=== PATIENT | male | born 1980 | race Caucasian/White ===

== ENCOUNTER → 2021-01-24 17:01 | Outpatient (BNVA) | payer BC, SELFPAY | PROVIDERS: Visit Provider Family Medicine | DX: M54.9 Dorsalgia, unspecified (principal); F41.9 Anxiety disorder, unspecified; M25.512 Pain in left shoulder | CPT/HCPCS: 81000 ==

== ENCOUNTER 2022-07-07 11:38 | Emergency (ER) | payer BC, SELFPAY ==
[2022-07-07 11:41] VITALS: BP 159/104; PULSE 75; RESP 20; TEMP 36.4; O2SAT 97; BMI 24.3
--- NOTE | 2022-07-07 11:44 | W.ED.FALL ---
HPI - Fall General: Chief Complaint: Back Pain/Injury Stated Complaint: fall low back pain Time Seen by Provider: 07/07/22 11:44 History of Present Illness: Mr. Leigh is a 41-year-old gentleman with history of back injury presented to the emergency department for back pain and hematuria. He reports 2 days ago while at work falling through a bench and landing on his back. He denies head strike or loss of consciousness associated with this. He did not immediately had pain. Subsequently, especially starting last night he has had right lower back pain without significant radiation. He notes associated hematuria and blood with ejaculation. No testicular pain or penile pain. Symptoms are moderate to severe in intensity. Course has persisted. He has not tried home medications. He does endorse alcohol use. No other specific changes in health, exacerbating, or alleviating factors identified. Onset (ago): day(s) Fall from: from height (distance) (3 ft) Place fall occurred: work Loss of consciousness: None Prolonged down time: no Symptoms prior to fall: none Context: tripped/slipped Location of injury: back Associated symptoms-after fall: Reports other Review of Systems General: Reports: 10 or more systems reviewed and unremarkable except in HPI and below PFSH ED PFSH: Medical History Psychiatric care Social History Smoking and tobacco status: current every day smoker cigarettes Packs smoked per day: 1 Years cigarettes smoked: 27 Alcohol intake: former Desire information about alcohol rehabilitation?: No Last substance use date: 01/23/21 Other details last substance use: smokes helena Marital status: Single Physical Exam Const: COMMON NORMALS: alert GENERAL APPEARANCE: cooperative and well developed HENMT: COMMON NORMALS: normocephalic and atraumatic HEAD & SCALP: normocephalic and atraumatic Eye: COMMON NORMALS: conjunctivae normal CONJUNCTIVA: Yes conjunctivae normal SCLERA: sclerae normal Neck/C-Spine: COMMON NORMALS: supple GENERAL: Yes trachea midline Resp: COMMON NORMALS: normal respiratory effort EFFORT & INSPECTION: Yes able to speak in complete sentences Cardio: COMMON NORMALS: regular rate and regular rhythm RATE: regular rate RHYTHM: regular rhythm GI: COMMON NORMALS: Soft to palpation PALPATION: Yes Soft to palpation and No Tenderness to palpation present (GI) Back/Pelvis: OTHER: Right mid to lower thoracic back tenderness palpation. Extremity: GENERAL: Yes normal exam except as noted and No edema Neuro: COMMON NORMALS: moves all extremities SENSORIUM/ORIENTATION: Yes alert and No Orientation impaired Psych: COMMON NORMALS: mental status grossly normal and Normal thought process present THOUGHT PROCESS: Normal thought process present Course Vital Signs: Vital signs: Vital Signs Temperature 97.6 F 07/07/22 11:41 Pulse Rate 80 07/07/22 14:56 Respiratory Rate 3 L 07/07/22 14:56 Blood Pressure 148/104 07/07/22 14:56 Pulse Oximetry 97 07/07/22 14:56 Oxygen Delivery Me thod 07/07/22 11:41 MDM - Fall Medical Decision Making 41-year-old gentleman presenting due to flank pain and concern over blood in urine. He does have mild evidence of clinical intoxication consistent with reported alcohol use today. Labs notable for hemoconcentration with no leukocytosis. No significant metabolic abnormality. Transaminitis likely secondary to alcohol use, no specific right upper quadrant tenderness. Positive UTI present. CT with hepatic steatosis with no other acute pathology or urinary tract pathology to explain symptoms. Patient treated with antibiotic, fluid, analgesia with improvement in symptoms During ED course. Most likely etiology of patient's symptoms is UTI. Patient denies new sexual partners or concern over sexually transmitted infection. The results of ED evaluation were discussed with the patient including prescriptions and/or symptomatic cares (if applicable) including appropriate and responsible use, followup plan, and return precautions. The patient verbalized understanding and felt safe for discharge. Medical Records I reviewed the patient's medical records. Lab Data I reviewed the patient's lab results. 07/07/22 12:33 07/07/22 12:33 Radiology Impressions Abdomen/Pelvis CT 07/07/22 13:09 IMPRESSION: 1. No sign of significant traumatic injury in the abdomen or pelvis. 2. No obstructive uropathy. No stones. 3. Hepatic steatosis. Laboratory Results WBC 6.7 10^3/uL (4.0-10.0) 07/07/22 12:33 Corrected WBC Cancelled 07/07/22 12:05 RBC 5.51 10^6/uL (4.1-5.3) H 07/07/22 12:33 Hgb 18.7 g/dL (11.7-16.6) H 07/07/22 12:33 Hct 55.0 % (42.0-52.0) H 07/07/22 12:33 MCV 99.8 fl (80-94) H 07/07/22 12:33 MCH 33.9 pg (28.0-34.0) 07/07/22 12:33 MCHC 34.0 g/dL (30.0-36.0) 07/07/22 12:33 RDW 13.1 % (12.1-15.1) 07/07/22 12:33 Plt Count 190 10^3/cmm (130-400) 07/07/22 12:33 MPV 9.2 fL (7.4-10.4) 07/07/22 12:33 Gran % Cancelled 07/07/22 12:05 Neut % (Auto) 57.1 % 07/07/22 12:33 Lymph % (Auto) 30.7 % 07/07/22 12:33 [place] % (Auto) 10.1 % 07/07/22 12:33 Eos % (Auto) 1.5 % 07/07/22 12:33 Baso % (Auto) 0.3 % 07/07/22 12:33 Neut # (Auto) 3.83 10^3/uL (1.8-7.7) 07/07/22 12:33 Lymph # (Auto) 2.1 10^3/uL (0.8-4.8) 07/07/22 12:33 [place] # (Auto) 0.7 10^3/uL (0.2-0.9) 07/07/22 12:33 Eos # (Auto) 0.1 10^3/uL (0.0-0.8) 07/07/22 12:33 Baso # (Auto) 0.0 10^3/uL (0.0-0.1) 07/07/22 12:33 Absolute Gran (auto) Cancelled 07/07/22 12:05 Nucleated RBC % (auto) 0 % 07/07/22 12:33 Nucleated RBCs # 0.0 /100WBC 07/07/22 12:33 Sodium 142 mmol/L (136-145) 07/07/22 12:33 Potassium 4.4 mmol/L (3.5-5.1) 07/07/22 12:33 Chloride 104 mmol/L (98-107) 07/07/22 12:33 Carbon Dioxide 28 mmol/L (22-29) 07/07/22 12:33 Anion Gap 14.4 (5-19) 07/07/22 12:33 BUN 8 mg/dL (6-20) 07/07/22 12:33 Creatinine 0.8 mg/dL (0.7-1.2) 07/07/22 12:33 GFR Calculation 106.5 mL/min (90-130) 07/07/22 12:33 Glucose 79 mg/dL (65-115) 07/07/22 12:33 Calculated Osmolality 291 mOsm/kg (285-295) 07/07/22 12: Calcium 9.0 mg/dL (8.5-10.5) 07/07/22 12:33 Total Bilirubin 0.2 mg/dL (0.15-1.2) 07/07/22 12:33 AST 140 U/L (0-40) H 07/07/22 12:33 ALT 131 U/L (0-41) H 07/07/22 12:33 Alkaline Phosphatase 77 U/L (40-130) 07/07/22 12:33 Total Protein 8.3 g/dL (6.6-8.7) 07/07/22 12: Albumin 4.4 g/dL (3.5-5.2) 07/07/22 12:33 Globulin 3.9 g/dL (1.3-4.6) 07/07/22 12: Lipase 39 U/L (13-60) 07/07/22 12:33 Urine Color Yellow (Yellow) 07/07/22 12:33 Urine Appearance Sl hazy (CLEAR) A 07/07/22 12:33 Urine pH 5 (5-7) 07/07/22 12:33 Ur Specific [place] 1.010 (1.005-1.030) 07/07/22 12:33 Urine Protein Neg (Negative) 07/07/22 12:33 Urine Glucose (UA) Norm (Normal) 07/07/22 12:33 Urine Ketones Negative (Negative) 07/07/22 12:33 Urine Blood Neg (Negative) 07/07/22 12:33 Urine Nitrate Positive (Negative) H 07/07/22 12:33 Urine Bilirubin Neg (Negative) 07/07/22 12:33 Urine Urobilinogen Norm mg/dL (Negative) 07/07/22 12:33 Ur Leukocyte Esterase Negative (Negative) 07/07/22 12:33 Urine RBC None /hpf (0-2) 07/07/22 12:33 Urine WBC Rare /hpf (0-5) 07/07/22 12:33 Ur Squamous Epith Cells None /hpf (0-5) 07/07/22 12:33 Amorphous Sediment Not Reportable 07/07/22 12:33 Urine Bacteria 4+ /hpf (NONE) H 07/07/22 12:33 Urine Mucus Trace /hpf 07/07/22 12:33 Discharge Plan Discharge Patient Disposition: Home Clinical Impression: Acute UTI, Back pain, Acute dehydration, Transaminitis, Enlarged liver Condition: Stable Prescriptions: New ondansetron 4 mg tablet,disintegrating 4 mg PO Q8H PRN (Reason: nausea and vomiting) Qty: 15 0RF oxycodone 5 mg tablet 5 mg PO Q4H PRN (Reason: pain) Qty: 10 0RF ciprofloxacin HCl 500 mg tablet 500 mg PO Q12H Qty: 20 0RF No Action acetaminophen-codeine 300-60 mg tablet 1 tab PO Q8H PRN (Reason: pain) Qty: 60 0RF celecoxib [Celebrex] 200 mg capsule 200 mg PO BID Qty: 60 2RF tizanidine 4 mg tablet 4 mg PO TID PRN (Reason: muscle spasticity) Qty: 60 1RF albuterol sulfate 90 mcg/actuation HFA aerosol inhaler 2 puff inhalation Q6H PRN (Reason: shortness of breath or wheezing) Qty: 8.5 0RF clonazepam 1 mg tablet 1 mg PO BID Qty: 60 2RF Discharge Orders: Discharge ED (Routine); Ordered 07/07/22 Ordered By: Camron Martínez Referrals: Chantal Slaughter MD [Primary Care Provider] - Discharge Diet: Usual diet Discharge Activity: Increase activity as tolerated Patient Instructions: Dehydration (ED), Urinary Tract Infection in Men (ED), Back Pain (ED), Opioid Safety Activity Restrictions/Additional Instructions: Thank you for visiting the emergency department. You were seen and evaluated for back pain and concern over blood in urine. The exact cause of your symptoms is unclear though likely related to urinary tract infection. You also have mild irritation of your liver and an enlarged liver which can contribute to pain. I recommend avoiding alcohol and acetaminophen. Please follow-up with a primary care provider for laboratory studies recheck. I will prescribe antibiotics, antinausea medication, and pain medication. I would expect improvement in the next few days. Return to the emergency department for worsening symptoms or anything else that you are concerned about and feel needs emergency department evaluation. Coding Level of Care Code ED C[employer] Assembler for Moise Linton
[2022-07-07 12:22] VITALS: RESP 16
[2022-07-07] MEDS: fentaNYL 50 mcg/mL INJ 2mL 25 MCG IVP (12:22)
[2022-07-07] MEDS: ketorolac 30 mg/mL INJ 15 MG IVP (12:22)
[2022-07-07] MEDS: sodium chloride 0.9% 1,000 ML 999 ML IV (12:23)
[2022-07-07 12:40] LABS: Basophils % 0.3 %; Eosinophils # 0.1 10^3/uL (0.0-0.8); Eosinophils % 1.5 %; Hemoglobin 18.7 g/dL (11.7-16.6); Lymphocytes # 2.1 10^3/uL (0.8-4.8); Lymphocytes % 30.7 %; Mean Corpuscular Hemoglobin 33.9 pg (28.0-34.0); Mean Corpuscular Volume 99.8 fl (80-94); Mean Platelet Volume 9.2 fL (7.4-10.4); Monocytes # 0.7 10^3/uL (0.2-0.9); Monocytes % 10.1 %; Neutrophils # 3.83 10^3/uL (1.8-7.7); Neutrophils % 57.1 %; Nucleated Red Blood Cells % 0 %; Platelet Count 190 10^3/cmm (130-400); Red Blood Count 5.51 10^6/uL (4.1-5.3); Red Cell Distribution Width 13.1 % (12.1-15.1); White Blood Count 6.7 10^3/uL (4.0-10.0)
[2022-07-07 13:00] LABS: Urine Appearance SL Hazy (CLEAR); Urine Color Yellow (Yellow)
[2022-07-07 13:01] LABS: Add Urine Microscopic? YES; Bilirubin Urine Neg (Negative); Blood Urine Neg (Negative); Glucose Urine UA Norm (Normal); Ketones Urine Negative (Negative); Leukocyte Esterase Urine Negative (Negative); Nitrate Urine Positive (Negative); Protein Urine Neg (Negative); Urobilinogen Urine Norm (Negative); pH Urine 5 (5-7)
[2022-07-07 13:04] LABS: Bacteria Urine 4+ /hpf; Mucus Urine TRACE /hpf; WBC Urine RARE /hpf (0-5)
[2022-07-07 13:05] LABS: Add Urine Culture? Yes
[2022-07-07 13:06] LABS: Alanine Aminotransferase 131 U/L (0-41); Albumin Level 4.4 g/dL (3.5-5.2); Alkaline Phosphatase 77 U/L (40-130); Anion Gap 14.4 (5-19); Aspartate Amino Transferase 140 U/L (0-40); Blood Urea Nitrogen 8 mg/dL (6-20); Carbon Dioxide 28 mmol/L (22-29); Chloride 104 mmol/L (98-107); Globulin 3.9 g/dL (1.3-4.6); Glomerular Filtration Rate 106.5 mL/min (90-130); Glucose 79 mg/dL (65-115); Lipase 39 U/L (13-60); Osmolality Calculated 291 mOsm/kg (285-295); Potassium 4.4 mmol/L (3.5-5.1); Sodium 142 mmol/L (136-145); Total Bilirubin 0.2 mg/dL (0.15-1.2); Total Protein 8.3 g/dL (6.6-8.7)
--- NOTE | 2022-07-07 13:09 | CTR_ITS ---
PROCEDURE INFORMATION: Exam: CT Abdomen And Pelvis Without Contrast Exam date and time: 07/07/2022 1:16 PM Age: 41 years old Clinical indication: Abdominal pain; Flank; Right; Additional info: Low back/ right flank pain TECHNIQUE: Imaging protocol: Computed tomography of the abdomen and pelvis without contrast. Radiation optimization: All CT scans at this facility use at least one of these dose optimization techniques: automated exposure control; mA and/or kV adjustment per patient size (includes targeted exams where dose is matched to clinical indication); or iterative reconstruction. REPORTING DATA: Count of CT and Cardiac NM exams in prior 12 months: This patient has received 0 known CTs and 0 known cardiac nuclear medicine studies in the 12 months prior to the current study. COMPARISON: No relevant prior studies available. RADIATION DOSE METRICS: Total DLP (mGy-cm): 413.38 FINDINGS: Lungs: Lung bases are clear. Liver: There is no focal liver abnormality. There is diffuse low-attenuation of the liver relative to the spleen consistent with fatty infiltration. Gallbladder and bile ducts: The gallbladder is normal. There is no biliary dilation. Pancreas: The pancreas is unremarkable. Spleen: The spleen is unremarkable. Adrenal glands: The adrenal glands are unremarkable. Kidneys and ureters: The kidneys are unremarkable. No hydronephrosis or stones. No ureteral dilation. Stomach and bowel: The stomach is unremarkable. The small bowel is nondilated. The colon is unremarkable. Appendix: The appendix is normal. Intraperitoneal space: There is no free air or significant intraperitoneal free fluid. Vasculature: The aorta is unremarkable. There is no aneurysm. Lymph nodes: There is no lymphadenopathy in the retroperitoneum, mesentery, pelvis or inguinal regions. Urinary bladder: The urinary bladder is unremarkable. Reproductive: The prostate and seminal vesicles are unremarkable. Bones/joints: There is mild degenerative disease in the lower lumbar spine. The pelvis and hips are unremarkable. Soft tissues: The abdominal wall is intact. CT/CT kidney stone [id number] IMPRESSION: 1. No sign of significant traumatic injury in the abdomen or pelvis. 2. No obstructive uropathy. No stones. 3. Hepatic steatosis.
[2022-07-07] MEDS: ciprofloxacin 500 mg Tablet PO (14:33)
[2022-07-07 14:56] VITALS: BP 148/104; PULSE 80; RESP 3; O2SAT 97
== END 2022-07-07 14:58 | disposition home or self-care (01) ==
PROVIDERS: Emergency Provider Emergency Medicine; PCP Family Medicine
DX: N39.0 Urinary tract infection, site not specified (principal); M54.50 Low back pain, unspecified; E86.0 Dehydration; R74.01 Elevation of levels of liver transaminase levels; R16.0 Hepatomegaly, not elsewhere classified; F17.210 Nicotine dependence, cigarettes, uncomplicated
CPT/HCPCS: 74176; 80053; 81001; 83690; 85025; 87077; 87086; 87186; 87491; 96374; 96375; 99285; J1885; J3010; J7030

== ENCOUNTER 2022-10-12 04:17 | Emergency (ER) | payer BC, SELFPAY ==
[2022-10-12 04:25] VITALS: BP 141/111; PULSE 91; RESP 18; TEMP 36.6; O2SAT 96; BMI 20.3
--- NOTE | 2022-10-12 04:28 | XRR_ITS ---
PROCEDURE INFORMATION: Exam: XR Left Hand Exam date and time: 10/12/2022 4:32 AM Age: 42 years old Clinical indication: Injury or trauma; Fall; Work related; Blunt trauma (contusions or hematomas); Hand; Left TECHNIQUE: Imaging protocol: Radiologic exam of the left hand. Views: 3 or more views. COMPARISON: No relevant prior studies available. FINDINGS: Bones/joints: There is complete dislocation involving the left 1st metacarpal phalangeal joint. The middle phalanx of the thumb is dislocated laterally relative to the 1st metacarpal. There is no definite acute fracture. If symptoms of fracture persist, follow-up imaging in several days may be useful to exclude an occult or subtle fracture. No other significant acute bone or joint abnormality. Soft tissues: No significant acute finding. XR/XR hand LT min 3V* [id number] IMPRESSION: 1. Dislocation of the left 1st metacarpophalangeal joint, details above. 2. No definite acute fracture. 3. Other details discussed above.
--- NOTE | 2022-10-12 04:29 | ED_ITS ---
Documented by User: Mazin Hoyos MD 10/12/22 04:48 HPI - Fall General: Chief Complaint: Fall Stated Complaint: Fall/Left and injury Time Seen by Provider: 10/12/22 04:26 Source: patient Mode of arrival: ambulatory Limitations: no limitations History of Present Illness: 42-year-old male states that he fell off a 6 foot ladder 2 hours ago he landed on his left hand is obvious deformity to his left thumb. States he did hit his head but denies any loss conscious he denies any headache currently he is not on any blood thinners. He denies any neck pain or pain elsewhere. Associated symptoms-after fall: Denies abdominal pain, chest pain, headache(s) or neck pain Review of Systems Const: Denies: fever(s) or chills Eyes: Denies: eye discomfort ENMT: Denies: throat pain or dental pain Card: Denies: chest pain Resp: Denies: dyspnea GI: Denies: abdominal pain, nausea, vomiting or diarrhea Musc: Reports: extremity pain; Denies: neck pain or back pain Skin/Breast: Denies: rash Neuro: Denies: headache(s) PFSH ED PFSH: Medical History Psychiatric care Social History Smoking and tobacco status: current every day smoker cigarettes Packs smoked per day: 1 Years cigarettes smoked: 27 Alcohol intake: former Desire information about alcohol rehabilitation?: No Last substance use date: 01/23/21 Other details last substance use: smokes helena Marital status: Single Physical Exam Const: COMMON NORMALS: no acute distress and patient oriented x3 HENMT: COMMON NORMALS: normocephalic HEAD & SCALP: normocephalic OTHER: hematoma to right scalp Eye: COMMON NORMALS: conjunctivae normal CONJUNCTIVA: Yes conjunctivae normal Neck/C-Spine: COMMON NORMALS: full ROM Chest: COMMONS NORMALS: normal inspection of the chest Resp: COMMON NORMALS: normal respiratory effort Cardio: COMMON NORMALS: regular rate RATE: regular rate GI: INSPECTION: Yes normal to inspection Extremity: NARRATIVE EXTREMITY EXAM: Tenderness to base of left thumb with obvious deformity OTHER: Obvious deformity base of left thumb with tenderness Neuro: COMMON NORMALS: patient oriented x3 Psych: COMMON NORMALS: mental status grossly normal Skin: COMMON NORMALS: no rashes or lesions noted GENERAL SKIN EXAM: no rashes or lesions noted Procedures Orthopedic Joint Reduction Joint #1: Time Out Performed: Yes Side: left Joint Reduction Location: finger Analgesia: nerve block Local Anesthesia: lidocaine 1% Amount of anesthesic used (mL): 10 Technique used: traction/counter-traction Post-reduction neuro exam: intact Post-reduction vascular: intact Post Reduction X-Ray Obtained: Yes Post Reduction X-Ray Results: reduced Splint Applied: No Patient Tolerated Procedure: well Course Vital Signs: Vital signs: Vital Signs Temperature 98 F 10/12/22 04:25 Pulse Rate 86 10/12/22 04:34 Respiratory Rate 17 10/12/22 04:34 Blood Pressure 144/111 10/12/22 04:34 Pulse Oximetry 95 10/12/22 04:34 Oxygen Delivery Me thod Room Air 10/12/22 04:34 MDM - Fall Lab Data Radiology Impressions Head CT 10/12/22 04:42 IMPRESSION: 1. No acute intracranial hemorrhage or mass effect. 2. Other findings discussed above. Discharge Plan Discharge Patient Disposition: Home Clinical Impression: Closed dislocation of left thumb, Fall, Closed head injury Condition: Stable Prescriptions: New Naprosyn 500 mg tablet 500 mg PO BID PRN (Reason: pain) Qty: 20 0RF No Action celecoxib [Celebrex] 200 mg capsule 200 mg PO BID Qty: 60 2RF tizanidine 4 mg tablet 4 mg PO TID PRN (Reason: muscle spasticity) Qty: 60 1RF albuterol sulfate 90 mcg/actuation HFA aerosol inhaler 2 puff inhalation Q6H PRN (Reason: shortness of breath or wheezing) Qty: 8.5 0RF Discharge Orders: Discharge ED (Routine); Ordered 10/12/22 Ordered By: Danielito Hackett Referrals: Lilia Faust MD [Physician] - 1-3 days Chantal Slaughter MD [Primary Care Provider] - Discharge Diet: Advance as tolerated Discharge Activity: Resume usual activity Patient Instructions: Head Injury (ED), Finger Dislocation (ED) Sign Out Sign Out Data: Patient Sign Out occurred on 10/12/22 at 05:06. Patient's care was discussed, and care was transferred from to Danielito Hackett DO. Coding Level of Care Code ED Web Content Executive for Chg Fwd Documented by User: Danielito Hackett DO 10/12/22 05:25 HPI - Fall General: Chief Complaint: Fall Stated Complaint: Fall/Left and injury Time Seen by Provider: 10/12/22 04:26 PFSH ED PFSH: Medical History Psychiatric care Social History Smoking and tobacco status: current every day smoker cigarettes Packs smoked per day: 1 Years cigarettes smoked: 27 Alcohol intake: former Desire information about alcohol rehabilitation?: No Last substance use date: 01/23/21 Other details last substance use: smokes helena Marital status: Single Course Vital Signs: Vital signs: Vital Signs Temperature 98 F 10/12/22 04:25 Pulse Rate 86 10/12/22 04:34 Respiratory Rate 17 10/12/22 04:34 Blood Pressure 144/111 10/12/22 04:34 Pulse Oximetry 95 10/12/22 04:34 Oxygen Delivery Me thod Room Air 10/12/22 04:34 MDM - Fall Medical Decision Making Care assumed at change of shift. X-rays reviewed postreduction film shows anatomical alignment normal with obvious fracture. CT head negative. Will place in a thumb spica splint make a follow-up with Ortho. Naprosyn as needed for discomfort. Medical Records I reviewed the patient's medical records. Lab Data I reviewed the patient's lab results. Radiology Impressions Head CT 10/12/22 04:42 IMPRESSION: 1. No acute intracranial hemorrhage or mass effect. 2. Other findings discussed above. Discharge Plan Discharge Patient Disposition: Home Clinical Impression: Closed dislocation of left thumb, Fall, Closed head injury Condition: Stable Prescriptions: New Naprosyn 500 mg tablet 500 mg PO BID PRN (Reason: pain) Qty: 20 0RF No Action celecoxib [Celebrex] 200 mg capsule 200 mg PO BID Qty: 60 2RF tizanidine 4 mg tablet 4 mg PO TID PRN (Reason: muscle spasticity) Qty: 60 1RF albuterol sulfate 90 mcg/actuation HFA aerosol inhaler 2 puff inhalation Q6H PRN (Reason: shortness of breath or wheezing) Qty: 8.5 0RF Discharge Orders: Discharge ED (Routine); Ordered 10/12/22 Ordered By: Danielito Hackett Referrals: Lilia Faust MD [Physician] - 1-3 days Chantal Slaughter MD [Primary Care Provider] - Discharge Diet: Advance as tolerated Discharge Activity: Resume usual activity Patient Instructions: Head Injury (ED), Finger Dislocation (ED) Sign Out Sign Out Data: Patient Sign Out occurred on 10/12/22 at 05:06. Patient's care was discussed, and care was transferred from to Danielito Hackett DO. Coding Level of Care Code ED Web Content Executive for Moise Linton
[2022-10-12 04:34] VITALS: BP 144/111; PULSE 86; RESP 17; O2SAT 95
--- NOTE | 2022-10-12 04:38 | XRR_ITS ---
PROCEDURE INFORMATION: Exam: XR Left Hand Exam date and time: 10/12/2022 4:50 AM Age: 42 years old Clinical indication: Injury or trauma; Fall; Work related; Other: Post red; Additional info: Poss thumb dislocation TECHNIQUE: Imaging protocol: Radiologic exam of the left hand. Views: 3 or more views. COMPARISON: CR (UP EXM, ) 10/12/2022 4:32 AM FINDINGS: Bones/joints: Post reduction views of the left hand/thumb were obtained. There has been interval reduction of the previously seen dislocation of the left 1st metacarpophalangeal joint. There is no definite acute fracture. If symptoms of fracture persist, follow-up imaging in several days may be useful to exclude an occult fracture. Soft tissues: No significant acute finding. XR/XR hand LT 2V [id number] IMPRESSION: Post reduction views as above.
--- NOTE | 2022-10-12 04:42 | CTR_ITS ---
PROCEDURE INFORMATION: Exam: CT Head Without Contrast Exam date and time: 10/12/2022 4:58 AM Age: 42 years old Clinical indication: Injury or trauma; Work related; Blunt trauma (contusions or hematomas); Consciousness not specified; Injury details: Fall from ladder last pm TECHNIQUE: Imaging protocol: Computed tomography of the head without contrast. Radiation optimization: All CT scans at this facility use at least one of these dose optimization techniques: automated exposure control; mA and/or kV adjustment per patient size (includes targeted exams where dose is matched to clinical indication); or iterative reconstruction. REPORTING DATA: Count of CT and Cardiac NM exams in prior 12 months: This patient has received [address] and 0 known cardiac nuclear medicine studies in the 12 months prior to the current study. COMPARISON: No relevant prior studies available. RADIATION DOSE METRICS: Total DLP (mGy-cm): 1236.62 FINDINGS: Brain: No acute intracranial hemorrhage or mass effect. No definite acute infarct by CT. Cerebral ventricles: Ventricle size is normal for age. Paranasal sinuses: Mild focal opacity/fluid in the anterior left ethmoid sinus. Included paranasal sinuses otherwise appear essentially clear. Mastoid air cells: No significant acute finding. Bones/joints: No definite acute skull fracture. Soft tissues: No significant acute finding. CT/CT head wo con* [id number] IMPRESSION: 1. No acute intracranial hemorrhage or mass effect. 2. Other findings discussed above.
[2022-10-12] MEDS: HYDROcodone-acetaminophen 5-325 mg Tablet 1 TAB PO (05:33)
[2022-10-12 05:54] VITALS: BP 152/92; PULSE 87; RESP 18; TEMP 36.4; O2SAT 98
--- NOTE | 2022-10-12 10:26 | DCPLANNER ---
Addendum entered by Rosa Pagan 10/23/22 11:26: Patient had a follow up appointment scheduled with ortho - patient did attend appointment. Addendum entered by Rosa Pagan 10/14/22 06:12: millinery department manager received the following message from the ortho clinic regarding follow up appointment: Attempted to contact patient; I was unable to get ahold of him. He did not have a v/m box set-up, but I will be mailing him a letter. When he calls back we are going to schedule him with our [employer] Asa, under Dr. Faust. Original Note: millinery department manager had message to schedule a follow up appointment for patient with ortho. millinery department manager sent patients information to the front office staff at ortho. Patients information will be printed and reviewed. Clinic will call patient with appointment information.
== END 2022-10-12 05:56 | disposition home or self-care (01) ==
PROVIDERS: Emergency Provider Family Medicine; PCP Family Medicine
DX: S63.115A Dislocation of metacarpophalangeal joint of left thumb, initial encounter (principal); S09.8XXA Other specified injuries of head, initial encounter; S00.03XA Contusion of scalp, initial encounter; W11.XXXA Fall on and from ladder, initial encounter
CPT/HCPCS: 26700; 70450; 73120; 73130; 99284

== ENCOUNTER 2022-10-15 11:17 | Emergency (ER) | payer BC, SELFPAY ==
[2022-10-15 11:23] VITALS: BP 158/116; PULSE 107; RESP 16; TEMP 36.8; O2SAT 93; BMI 24.3
--- NOTE | 2022-10-15 11:24 | ED_ITS ---
HPI - General Adult General: Stated complaint: left arm pain Time Seen by Provider: 10/15/22 11:19 Source: patient Mode of arrival: ambulatory Limitations: no limitations History of Present Illness: 42-year-old male seen here last week for a thumb dislocation he is in a thumb spica splint he states that he is having some arm pain states he is having some slight pain in his shoulder he states he feels like it is away from the splint he also is having a throbbing pain in his thumb that is a 6 out of 10 he states been having hard time sleeping at night he has not been in any pain meds besides ibuprofen he has a appoint with orthopedics on Saturday he denies any other new injuries Associated symptoms: Deny chest pain, headache(s) or rash Review of Systems Const: Denies: fever(s) Eyes: Denies: change in vision ENMT: Denies: throat pain Card: Denies: chest pain GI: Denies: abdominal pain Musc: Reports: extremity pain Skin/Breast: Denies: rash Neuro: Denies: headache(s) Psych: Denies: anxiety PFSH ED PFSH: Medical History Psychiatric care Social History Smoking and tobacco status: current every day smoker cigarettes Packs smoked per day: 1 Years cigarettes smoked: 27 Alcohol intake: former Desire information about alcohol rehabilitation?: No Last substance use date: 01/23/21 Other details last substance use: smokes helena Marital status: Single Physical Exam Const: COMMON NORMALS: no acute distress and alert HENMT: COMMON NORMALS: normocephalic HEAD & SCALP: normocephalic Eye: COMMON NORMALS: conjunctivae normal CONJUNCTIVA: Yes conjunctivae normal Neck/C-Spine: COMMON NORMALS: full ROM Chest: COMMONS NORMALS: normal inspection of the chest Resp: COMMON NORMALS: normal respiratory effort Cardio: COMMON NORMALS: regular rate and regular rhythm RATE: regular rate RHYTHM: regular rhythm GI: COMMON NORMALS: Normal to inspection, nondistended, normoactive bowel sounds present and Soft to palpation PALPATION: Yes Soft to palpation Extremity: OTHER: Splint in place distal pulses sensation intact is full range of motion to his left arm no shoulder tenderness Neuro: SENSORIUM/ORIENTATION: Yes alert Psych: COMMON NORMALS: mental status grossly normal Skin: COMMON NORMALS: no rashes or lesions noted GENERAL SKIN EXAM: no rashes or lesions noted [facility] - General Adult Medical Decision Making . Patient presents with left arm pain we will place him in a sling here write him some hydrocodone he is to follow-up as scheduled with the shoulder exam is benign splint is not too tight no signs of compartment syndrome he is stable for discharge return if worsening. Discharge Plan Discharge Patient Disposition: Home Clinical Impression: Closed dislocation of left thumb, Arm pain, left Condition: Stable Prescriptions: New hydrocodone-acetaminophen 5-325 mg tablet 1 tab PO Q6H PRN (Reason: pain) Qty: 14 0RF No Action celecoxib [Celebrex] 200 mg capsule 200 mg PO BID Qty: 60 2RF tizanidine 4 mg tablet 4 mg PO TID PRN (Reason: muscle spasticity) Qty: 60 1RF albuterol sulfate 90 mcg/actuation HFA aerosol inhaler 2 puff inhalation Q6H PRN (Reason: shortness of breath or wheezing) Qty: 8.5 0RF Naprosyn 500 mg tablet 500 mg PO BID PRN (Reason: pain) Qty: 20 0RF Discharge Orders: Discharge ED (Routine); Ordered 10/15/22 Ordered By: Mazin Hoyos Referrals: Chantal Slaughter MD [Primary Care Provider] - 1-3 days Discharge Diet: Advance as tolerated Discharge Activity: Resume usual activity Patient Instructions: Arm Pain (ED), Opioid Safety Coding Level of Care Code ED Stonecutter Hand for Moise Linton
[2022-10-15] MEDS: HYDROcodone-acetaminophen 5-325 mg Tablet 1 TAB PO (11:45)
== END 2022-10-15 11:46 | disposition home or self-care (01) ==
PROVIDERS: Emergency Provider Emergency Medicine; PCP Family Medicine
DX: S63.105A Unspecified dislocation of left thumb, initial encounter (principal); M79.602 Pain in left arm; F17.210 Nicotine dependence, cigarettes, uncomplicated; X58.XXXA Exposure to other specified factors, initial encounter
CPT/HCPCS: 99283

== ENCOUNTER → 2022-10-18 13:47 | Outpatient (BNVA) | payer OTHER, BC, SELFPAY | PROVIDERS: PCP Family Medicine; Referring Provider Emergency Medicine; Visit Provider Nurse Practitioner Family | DX: S63.105A Unspecified dislocation of left thumb, initial encounter (principal); W22.8XXA Striking against or struck by other objects, initial encounter | CPT/HCPCS: 73130 ==

== ENCOUNTER 2023-01-30 06:00 | Outpatient (RCR) | payer OTHER, SELFPAY | END 2023-02-19 23:59 | disposition home or self-care (01) | LOC: TPT 06:00 | PROVIDERS: Visit Provider Orthopaedic Surgery | DX: M75.122 Complete rotator cuff tear or rupture of left shoulder, not specified as traumatic (principal) | CPT/HCPCS: 97110; 97163 ==

== ENCOUNTER 2023-08-19 12:18 | Emergency (ER) | payer MEDICAID, SELFPAY ==
[2023-08-19 12:50] VITALS: BP 111/76; PULSE 101; RESP 18; TEMP 36.8; O2SAT 98; BMI 23.6
--- NOTE | 2023-08-19 13:28 | ED_ITS ---
HPI - General Adult General: Chief complaint: General Medical Stated complaint: swollen face,dizzy Time Seen by Provider: 08/19/23 13:04 History of Present Illness: 43-year-old male presents emergency depa rtment with complaints of swelling to the left side of his face as well as dental pain. He states he has a history of cirrhosis secondary to alcohol use. 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 He states that he woke up this morning and started having left upper dental pain as well as left-sided facial swelling and redness. He states that he is not having any difficulty swallowing, no difficulty breathing or difficulty with phonation. Review of Systems General: Reports: 10 or more systems reviewed and unremarkable except in HPI and below ENMT: Reports: mouth pain, dental pain and sinus pain; Denies: odynophagia or ear or mastoid pain PFSH ED PFSH: Social History Smoking and tobacco/nicotine status: current every day tobacco/nicotine user cigarettes Packs smoked per day: 1 Years cigarettes smoked: 27 Alcohol intake: former Marital status: Single Physical Exam Narrative: EXAM NARRATIVE: General: Alert, no acute distress. Skin: Warm, dry, Intact. Head: Normocephalic, atraumatic. Left maxillary facial tenderness and redness. Neck: Supple, trachea midline. No lymphadenopathy. Eye: Extraocular movements are intact. PERRLA Ears, nose, mouth and throat: mucosa moist. Poor dentition, gingivitis noted to left upper. Multiple dental caries and fractured teeth. Cardiovascular: Regular, Normal peripheral perfusion. Respiratory: Lungs are clear to auscultation, respirations are non-labored, breath sounds are equal, Symmetrical chest wall expansion. Gastrointestinal: Soft, Nontender, Non distended, Normal bowel sounds. Musculoskeletal: Normal ROM, no deformity. Neurological: Alert and oriented, No focal neurological deficit observed. Psychiatric: Cooperative, appropriate mood & affect. Course Vital Signs: Vital signs: Vital Signs Temperature 98.2 F 08/19/23 12:50 Pulse Rate 101 H 08/19/23 12:50 Respiratory Rate 18 08/19/23 12:50 Blood Pressure 111/76 08/19/23 12:50 Pulse Oximetry 98 08/19/23 12:50 Oxygen Delivery Me thod Room Air 08/19/23 12:50 MDM - General Adult Medical Decision Making Physical exam completed and documented I will provide the patient with clindamycin antibiotic prescription as well as naproxen antibiotic prescription. Patient does have an allergy to aspirin but states he has taken naproxen, ibuprofen and Aleve in the past without difficulty. Differential Diagnosis Periapical abscess, dental abscess, dental caries, gingivitis, sinusitis, Medical Records I reviewed the patient's medical records. No radiology studies performed this visit Discharge Plan Discharge Patient Disposition: Home Clinical Impression: Dental abscess, Pain, dental Condition: Stable Prescriptions: New clindamycin HCl 300 mg capsule 300 mg PO Q8H 10 Days Qty: 30 0RF naproxen 500 mg tablet 500 mg PO Q12H PRN (Reason: pain) Qty: 20 0RF No Action celecoxib [Celebrex] 200 mg capsule 200 mg PO BID Qty: 60 2RF albuterol sulfate 90 mcg/actuation HFA aerosol inhaler 2 puff inhalation Q6H PRN (Reason: shortness of breath or wheezing) Qty: 8.5 0RF cyclobenzaprine 10 mg tablet 10 mg PO BEDTIME clonazepam 1 mg tablet 1 mg PO DAILY ondansetron 8 mg tablet,disintegrating 8 mg PO Q6H PRN (Reason: Nausea And Vomiting) cefdinir 300 mg capsule 300 mg PO BID oxycodone 5 mg tablet 5 mg PO Q4H PRN (Reason: Pain) Discharge Orders: Discharge ED (Routine); Ordered 08/19/23 Ordered By: Alvaro Workman Discharge Diet: Usual diet Discharge Activity: Resume usual activity Patient Instructions: Opioid Safety, Pain Management Activity Restrictions/Additional Instructions: Activity Restrictions/Additional Instructions: Thank you for choosing [facility] for your healthcare needs today. Please realize that you were seen in the Emergency Department and that we are providing you with an emergency medical screening exam and this may not be a complete and all inclusive of all the testing and or medical work-up that you may need to determine your ailment or severity of your illness. It is very important that you follow-up as instructed with your Primary care provider or Specialist for additional evaluation and to discuss your medical treatment plan. Follow-up with your dentist for additional evaluation treatment and care. It is extremely important that you complete the entire antibiotic treatment course to help resolve your dental infection. Coding Level of Care Code ED [employer] Caster for Moise Linton
[2023-08-19 14:03] VITALS: PULSE 85; O2SAT 98
[2023-08-19 14:04] VITALS: PULSE 85; O2SAT 98
== END 2023-08-19 14:05 | disposition home or self-care (01) ==
PROVIDERS: Emergency Provider Internal Medicine
DX: K04.7 Periapical abscess without sinus (principal); F17.210 Nicotine dependence, cigarettes, uncomplicated
CPT/HCPCS: 99283